=== PATIENT | female | born 1945 | race African-American/Black ===

== ENCOUNTER 2018-02-05 12:01 | Inpatient (IN) | payer MEDICARE, BC ==
[~2018-02-05] VITALS: Ht 162.6 cm; Wt 61.2 kg
[~2018-02-05 12:01] MED LIST: BENA20TA10 PO; LACT10SO7 PO
[2018-02-05] MEDS ORDERED: SODIUM CHLORIDE 0.9% 1,000 ML IV ONE (12:13)
[2018-02-05 12:43] LABS: BG CARBOXYHEMOGLOBIN 0.7 % (0.5-1.5); BG DEOXYHEMOGLOBIN 2.4 % (0.0-5.0); BG FRACTION INSPIRED OXYGEN 21; BG METHEMOGLOBIN 0.4 % (0.0-1.5); BG OXYGEN SATURATION 97.6 % (92.0-98.5); BG OXYHEMOGLOBIN 96.5 % (94.0-97.0); BG PCO2 37.9 mmHg (35.0-45.0); BG PH 7.438 (7.350-7.450); BG PO2 103.5 mmHg (75.0-100.0); BG SAMPLE SITE LEFT RADIAL; BG TOTAL HEMOGLOBIN 13.8 g/dL (12.0-18.0); BG VENT MODE ROOM AIR
[2018-02-05 12:49] LABS: EOSINOPHILS % 2.5 % (0.0-5.0); HEMATOCRIT. 41.6 % (36.0-48.0); LYMPHOCYTES % 34.7 % (20.0-50.0); MEAN CORPUSCULAR VOLUME 92.4 fL (81.0-99.0); MONOCYTES % 12.8 % (2.0-8.0); PLATELET 162 x1000/uL (130-400)
[2018-02-05 12:55] LABS: CHLORIDE 107 mEq/L (98-107)
[2018-02-05 13:00] LABS: ETHANOL BLOOD < 10 mg/dL
[2018-02-05] MEDS ORDERED: ONDANSETRON HCL 4MG/2ML INJ IV ONE (13:00)
[2018-02-05] MEDS ORDERED: NALOXONE HCL 0.4 MG/ML 1ML VIAL IV ONE (13:00)
[2018-02-05 14:49] LABS: CLARITY URINE CLEAR (CLEAR); COLOR URINE YELLOW (YELLOW); KETONES URINE NEGATIVE (NEGATIVE); LEUKOCYTE ESTERASE URINE TRACE (NEGATIVE); NITRITE URINE NEGATIVE (NEGATIVE); OCCULT BLOOD URINE NEGATIVE (NEGATIVE); PROTEIN URINE NEGATIVE (NEGATIVE); SPECIFIC GRAVITY URINE 1.011 (1.005-1.030); UROBILINOGEN URINE 0.2 E.U./dL (0.2-1.0)
[2018-02-05 15:11] LABS: *AMPHETAMINES SCREEN URINE NEGATIVE (NEGATIVE); *BARBITURATES SCREEN URINE NEGATIVE (NEGATIVE)
[2018-02-05 15:12] LABS: *BENZODIAZEPINES SCREEN URINE NEGATIVE (NEGATIVE); *COCAINE SCREEN URINE NEGATIVE (NEGATIVE); CANNABINOID URINE SCREEN NEGATIVE (NEGATIVE); METHADONE URINE SCREEN NEGATIVE (NEGATIVE); OPIATES URINE SCREEN NEGATIVE (NEGATIVE); PHENCYCLIDINE URINE SCREEN NEGATIVE (NEGATIVE)
[2018-02-05] MEDS ORDERED: HALOPERIDOL LACTATE 5MG/ML VIAL IM ONE (17:00)
[2018-02-05] MEDS ORDERED: LORAZEPAM 2MG/ML CPJ IV ONE (17:00)
[2018-02-06] MEDS ORDERED: LORAZEPAM 2MG/ML CPJ IV PRN ×2 (04:30→08:30)
[2018-02-06 08:00] VITALS: BP 155/76
[2018-02-06] MEDS ORDERED: CLONIDINE 0.1MG TABLET PO PRN (08:30)
[2018-02-06] MEDS ORDERED: ACETAMINOPHEN 325MG TABLET PO PRN (08:30)
[2018-02-06] MEDS ORDERED: ONDANSETRON HCL 4MG/2ML INJ IV PRN (08:30)
[2018-02-06 09:45] VITALS: BP 141/87
[2018-02-06] MEDS ORDERED: BENI5 MT (10:26)
[2018-02-06] MEDS ORDERED: MIRT15TA MT (10:27)
[2018-02-06] MEDS ORDERED: POTASSIUM CHLORIDE 20MEQ TABLET SR PO NR (10:45)
[2018-02-06 12:00] VITALS: BP 178/68
[2018-02-06 12:40] VITALS: BP 164/72
[2018-02-06] MEDS ORDERED: BENAZEPRIL 10MG TABLET PO SCH (15:15)
[2018-02-06 16:00] VITALS: BP 124/61
[2018-02-06 17:00] VITALS: BP 124/61
[2018-02-06] MEDS ORDERED: MIRTAZAPINE 30MG TABLET PO SCH (21:00)
== END 2018-02-06 17:58 | disposition home or self-care (01) | DRG 683 ==
LOC: ER 12:14 → EDBEDREQ 18:12 → EDBEDREQTM 18:12 → 6EST 18:20 → CANRESERV 02-06 07:29 → ENRESERV 02-06 07:29 → EDBEDREQSVC 02-06 09:00 → EDBEDREQ 02-06 09:00 → ENRESERV 02-06 09:14
PROVIDERS: ADMIT Internal Medicine; ATTEND Internal Medicine
DX: N17.0 Acute kidney failure with tubular necrosis (principal); G93.40 Encephalopathy, unspecified; R45.851 Suicidal ideations; E87.6 Hypokalemia; R00.0 Tachycardia, unspecified; I10 Essential (primary) hypertension; F03.90 Unspecified dementia, unspecified severity, without behavioral disturbance, psychotic disturbance, mood disturbance, and anxiety; F32.9 Major depressive disorder, single episode, unspecified; Z88.0 Allergy status to penicillin; Z79.899 Other long term (current) drug therapy
CPT/HCPCS: 36415; 36600; 71045; 80305; 82140; 82375; 82805; 83605; 84443; 84484; 93005; 96361; 96374; 96375; 99285; G0482; J2310; J2405; J7030

== ENCOUNTER 2021-06-12 15:37 | Emergency (ER) | payer BC, MEDICARE ==
[~2021-06-12] VITALS: Ht 165.1 cm; Wt 73.0 kg
[~2021-06-12 15:37] MED LIST changes: +BENI5 MT; +MIRT-118 MT
[2021-06-12 15:44] VITALS: BP 146/78
[2021-06-12] MEDS ORDERED: BACITRACIN ZINC OINT UDPKT TOP ONE (16:30)
[2021-06-12] MEDS ORDERED: IBUPROFEN 400MG TABLET PO ONE (16:30)
[2021-06-12] MEDS ORDERED: IBUP-2028 MT (17:37)
== END 2021-06-12 18:03 | disposition home health service (06) ==
LOC: ER 15:37
DX: M25.562 Pain in left knee (principal); F03.90 Unspecified dementia, unspecified severity, without behavioral disturbance, psychotic disturbance, mood disturbance, and anxiety; I10 Essential (primary) hypertension; Z88.0 Allergy status to penicillin; Z79.899 Other long term (current) drug therapy
CPT/HCPCS: 73521; 73560; 99284